=== PATIENT | female | born 1935 ===

== ENCOUNTER 2023-10-29 13:07 | Outpatient (OUT) | payer MEDICARE, OTHER, SELFPAY ==
--- NOTE | 2023-10-29 | XR_ITS ---
[facility] [place] [id number] Patient Name: HELEN FIGUEREDO MRN: [id number] date: 1935 Sex: F Assigned Patient Location: [facility] Current Patient Location: [facility] Accession/Order Number: [id number] Exam Date: 10/29/2023 13:17 Report Date: 10/29/2023 15:09 At the request of: ARYAN BASURTO Procedure: XR foot LT min 3V PROCEDURE: XR foot LT min 3V HISTORY: LEFT FOOT PAIN ; plantar tenderness COMPARISON: None. FINDINGS: BONES:Mild flattening of plantar arch. No fracture, dislocation, bone lesion. Mild degenerative changes of the midfoot. Small calcaneal plantar spur. SOFT TISSUES:No visible soft tissue swelling. EFFUSION:None visible. OTHER: Negative. XR/XR foot LT min 3V IMPRESSION: 1. No acute bone abnormality. 2. Mild degenerative joint disease and mild pes planus. Electronically authenticated by: KALYANI LEONARD Date: 10/29/2023 15:09
== END 2023-10-29 13:08 | disposition home or self-care (01) ==
LOC: RAD 13:08
PROVIDERS: PCP Podiatrist Foot & Ankle Surgery; Visit Provider Podiatrist Foot & Ankle Surgery
DX: M79.672 Pain in left foot (principal); M21.42 Flat foot [pes planus] (acquired), left foot
CPT/HCPCS: 73630